=== PATIENT | male | born 1990 | race Hispanic/Latino ===

== ENCOUNTER 2020-09-03 09:21 | Emergency (ER) | payer OTHER ==
[~2020-09-03] VITALS: Ht 170.2 cm; Wt 74.8 kg
[2020-09-03] MEDS ORDERED: FLUORESCEIN SOD(OPTH) 1 MG STRP OP ONE (09:45)
[2020-09-03] MEDS ORDERED: TETRACAINE HCL 0.5% OPTH SOLN 4 ML BTL OP ONE (09:45)
[2020-09-03] MEDS ORDERED: TETANUS/DIPHTHERIA TOX ADULT 0.5 ML SYR IM ONE (09:45)
== END 2020-09-03 10:02 | disposition home or self-care (01) ==
LOC: ER 09:38
DX: H57.11 Ocular pain, right eye (principal)
CPT/HCPCS: 90714; 99282

== ENCOUNTER 2020-11-28 14:46 | Emergency (ER) | payer OTHER ==
[~2020-11-28] VITALS: Ht 170.2 cm; Wt 74.8 kg
== END 2020-11-28 15:30 | disposition home or self-care (01) ==
LOC: ER 14:50
DX: H57.11 Ocular pain, right eye (principal)
CPT/HCPCS: 99283